=== PATIENT | female | born 1950 | race African-American/Black ===

== ENCOUNTER 2021-11-18 19:08 | Inpatient (IN) | payer MEDICARE, OTHER ==
[~2021-11-18] VITALS: Ht 157.5 cm; Wt 94.8 kg
[2021-11-18 21:28] LABS: BASOPHILS % 0.2 % (0.0-2.0); EOSINOPHILS % 1.9 % (0.0-5.0); HEMATOCRIT. 32.3 % (36.0-48.0); LYMPHOCYTES % 12.4 % (20.0-50.0); MEAN CORPUSCULAR HEMOGLOBIN 28.8 pg (28.0-32.0); MEAN CORPUSCULAR VOLUME 93.4 fL (81.0-99.0); MEAN PLATELET VOLUME 9.4 fl (7.4-10.4); MONOCYTES % 5.8 % (2.0-8.0); NEUTROPHILS % 79.7 % (40.0-76.0); PLATELET 299 x1000/uL (130-400); RED BLOOD CELL COUNT 3.46 mill/uL (4.2-5.4); RED CELL DISTRIBUTION WIDTH 17.9 % (11.6-14.6)
[2021-11-18 21:38] LABS: INR 1.5; PROTHROMBIN TIME 15.5 sec (9.6-11.0)
[2021-11-18 21:45] LABS: CHLORIDE 110 mEq/L (98-107)
[2021-11-18] MEDS ORDERED: PIPERACILLIN/TAZOBACTAM 3.375GM/50ML PREMIX IV ONE (21:45)
[2021-11-18 21:55] LABS: CREATINE KINASE 62 IU/L (26-192)
[2021-11-18] MEDS ORDERED: SODIUM CHLORIDE 0.9% 500 ML IV ONE (22:00)
[2021-11-18] MEDS ORDERED: PIPERACILLIN/TAZ 3.375G PREMIX 50 ML IV NR (22:00)
[2021-11-18] MEDS ORDERED: POLYETHYLENE GLYCOL 3350 (17GM) 1 DOSE PACK PO NR (22:30)
[2021-11-18] MEDS ORDERED: VANCOMYCIN 1G PREMIX 200 ML IV NR (22:30)
[2021-11-18 23:15] LABS: CLARITY URINE CLOUDY (CLEAR); COLOR URINE DARK YELLOW (YELLOW); KETONES URINE NEGATIVE (NEGATIVE); LEUKOCYTE ESTERASE URINE 2+ (NEGATIVE); NITRITE URINE NEGATIVE (NEGATIVE); OCCULT BLOOD URINE NEGATIVE (NEGATIVE); PH URINE 5.5 (4.5-8.0); PROTEIN URINE 1+ (NEGATIVE); SPECIFIC GRAVITY URINE 1.021 (1.005-1.030); UROBILINOGEN URINE 0.2 E.U./dL (0.2-1.0)
[2021-11-18] MEDS ORDERED: NA PHOS,M-B/NA PHOS,DI-BA ENEMA 118ML PR ONE (23:30)
[2021-11-18] MEDS ORDERED: BISACODYL 5MG TABLET PO NR (23:30)
[2021-11-19] VITALS (7 sets, daily range): BP systolic 121–188; BP diastolic 62–96
[2021-11-19] MEDS ORDERED: CLONIDINE 0.1MG TABLET PO PRN
[2021-11-19] MEDS ORDERED: CEFTRIAXONE 1 G PREMIX 50 ML IV SCH
[2021-11-19] MEDS ORDERED: HYDROCODONE/ACETAMINOPHEN 5/325MG TABLET PO PRN
[2021-11-19] MEDS ORDERED: NALOXONE HCL 0.4MG/ML VIAL IV PRN (09:00)
[2021-11-19] MEDS ORDERED: ENOXAPARIN 30MG/0.3ML SYR SUBCUT SCH (09:00)
[2021-11-19] MEDS ORDERED: FLUCONAZOLE 100MG TABLET PO SCH (09:00)
[2021-11-19 12:30] LABS: HEMATOCRIT. 26.2 % (36.0-48.0); HEMOGLOBIN. 8.2 g/dL (12.0-16.0); MEAN CORPUSCULAR HEMOGLOBIN 28.9 pg (28.0-32.0); MEAN CORPUSCULAR VOLUME 92.4 fL (81.0-99.0); MEAN PLATELET VOLUME 9.6 fl (7.4-10.4); PLATELET 229 x1000/uL (130-400); RED BLOOD CELL COUNT 2.84 mill/uL (4.2-5.4)
[2021-11-19 12:34] LABS: CHLORIDE 111 mEq/L (98-107)
[2021-11-19 12:44] LABS: PHOSPHORUS 2.3 mg/dL (2.5-4.9)
[2021-11-19] MEDS: ENOXAPARIN 100MG/ML SYR SUBCUT SCH ×2 (13:50→22:13)
[2021-11-19 15:23] LABS: PLATELET ESTIMATE NORMAL
[2021-11-19] MEDS: FLUCONAZOLE 400MG/200ML BAG 200 ML IV SCH (20:29)
[2021-11-19] MEDS: DEXT 5%/0.45% NACL 1000ML 1,000 ML IV SCH (20:29)
[2021-11-19] MEDS ORDERED: CEFTRIAXONE 1,000 MG in DEXTROSE 5% WATER 50 ML IV SCH (22:00)
[2021-11-19] MEDS: QUETIAPINE FUMARATE 25MG TABLET PO SCH (22:13)
[2021-11-20] VITALS (12 sets, daily range): BP systolic 129–157; BP diastolic 8–91
[2021-11-20] MEDS: DEXT 5%/0.45% NACL 1000ML 1,000 ML IV SCH ×2 (05:54→17:22)
[2021-11-20 06:47] LABS: BASOPHILS % 0.2 % (0.0-2.0); EOSINOPHILS % 1.8 % (0.0-5.0); HEMATOCRIT. 25.8 % (36.0-48.0); HEMOGLOBIN. 8.4 g/dL (12.0-16.0); LYMPHOCYTES % 8.7 % (20.0-50.0); MEAN CORPUSCULAR HEMOGLOBIN 29.2 pg (28.0-32.0); MEAN CORPUSCULAR VOLUME 89.4 fL (81.0-99.0); MEAN PLATELET VOLUME 9.5 fl (7.4-10.4); MONOCYTES % 5.9 % (2.0-8.0); NEUTROPHILS % 83.4 % (40.0-76.0); PLATELET 227 x1000/uL (130-400); RED BLOOD CELL COUNT 2.88 mill/uL (4.2-5.4); RED CELL DISTRIBUTION WIDTH 17.2 % (11.6-14.6)
[2021-11-20 07:04] LABS: CHLORIDE 113 mEq/L (98-107)
[2021-11-20 07:11] LABS: PHOSPHORUS 2.7 mg/dL (2.5-4.9)
[2021-11-20] MEDS ORDERED: POTASSIUM CHLORIDE INJ 40 MEQ in DEXT 5% WATER 500 ML IV NR (08:00)
[2021-11-20] MEDS ORDERED: POTASSIUM CHLORIDE 20MEQ TABLET SR PO NR (08:00)
[2021-11-20] MEDS: ENOXAPARIN 100MG/ML SYR SUBCUT SCH ×2 (09:03→21:27)
[2021-11-20] MEDS: CEFTRIAXONE 1,000 MG in DEXTROSE 5% WATER 50 ML IV SCH ×2 (09:04→09:05)
[2021-11-20 12:17] LABS: BG BASE EXCESS -0.1 mmol/L (-2.0-2.0); BG CARBOXYHEMOGLOBIN 0.3 % (0.5-1.5); BG DEOXYHEMOGLOBIN 1.8 % (0.0-5.0); BG FRACTION INSPIRED OXYGEN 35; BG METHEMOGLOBIN 0.5 % (0.0-1.5); BG OXYGEN SATURATION 98.2 % (92.0-98.5); BG OXYHEMOGLOBIN 97.4 % (94.0-97.0); BG PCO2 31.3 mmHg (35.0-45.0); BG PH 7.484 (7.350-7.450); BG PO2 126.1 mmHg (75.0-100.0); BG SAMPLE SITE RIGHT RADIAL; BG VENT MODE COOL AEROSOL
[2021-11-20 13:23] LABS: INR 2.3; PROTHROMBIN TIME 23.5 sec (9.6-11.0)
[2021-11-20 13:31] LABS: TOTAL IRON BINDING CAPACITY 126 ug/dL (250-450)
[2021-11-20 13:45] LABS: FERRITIN 868 ng/mL (10-291)
[2021-11-20] MEDS ORDERED: EZ-HD SUSPENSION(BARIUM SULFATE 340GM) PO ONE (14:00)
[2021-11-20] MEDS ORDERED: BARIUM SULFATE 176 GM SUSP.RECON ONE (14:05)
[2021-11-20 15:11] LABS: VITAMIN B12 SERUM 1069 pg/mL (211-911)
[2021-11-20 15:26] LABS: FOLIC ACID (FOLATE) SERUM > 20.00 ng/mL (>5.38)
[2021-11-20 18:48] LABS: CHLORIDE 112 mEq/L (98-107)
[2021-11-20] MEDS ORDERED: POTASSIUM CHLORIDE INJ 40 MEQ in DEXT 5% WATER 500 ML IV ONE (21:00)
[2021-11-20] MEDS: QUETIAPINE FUMARATE 25MG TABLET PO SCH (21:27)
[2021-11-20] MEDS: FLUCONAZOLE 400MG/200ML BAG 200 ML IV SCH (21:28)
[2021-11-20] MEDS: KCL 20MEQ/100ML X 2 FOR TOTAL KCL 40MEQ/200ML IV SCH ×2 (21:28→23:23)
[2021-11-21] VITALS (12 sets, daily range): BP systolic 132–168; BP diastolic 74–92
[2021-11-21] MEDS: DEXT 5%/0.45% NACL 1000ML 1,000 ML IV SCH ×3 (01:45→21:25)
[2021-11-21 07:04] LABS: BASOPHILS % 0.3 % (0.0-2.0); HEMATOCRIT. 24.8 % (36.0-48.0); INR 2.4; LYMPHOCYTES % 11.5 % (20.0-50.0); MEAN CORPUSCULAR HEMOGLOBIN 29.3 pg (28.0-32.0); MEAN CORPUSCULAR VOLUME 90.4 fL (81.0-99.0); MEAN PLATELET VOLUME 9.5 fl (7.4-10.4); MONOCYTES % 6.8 % (2.0-8.0); NEUTROPHILS % 79.4 % (40.0-76.0); PLATELET 222 x1000/uL (130-400); RED BLOOD CELL COUNT 2.74 mill/uL (4.2-5.4); RED CELL DISTRIBUTION WIDTH 17.4 % (11.6-14.6)
[2021-11-21 08:32] LABS: CHLORIDE 111 mEq/L (98-107); PHOSPHORUS 1.9 mg/dL (2.5-4.9)
[2021-11-21] MEDS: CEFTRIAXONE 1,000 MG in DEXTROSE 5% WATER 50 ML IV SCH (10:27)
[2021-11-21] MEDS: ENOXAPARIN 100MG/ML SYR SUBCUT SCH (10:27)
[2021-11-21] MEDS ORDERED: POTASSIUM CHLORIDE 20MEQ/PACKET PO NR (10:30)
[2021-11-21] MEDS ORDERED: POTASSIUM PHOS,M-BASIC-D-BASIC 20 MMOL in DEXT 5% WATER 243.3333 ML IV NR (12:00)
[2021-11-21] MEDS: GUAIFENESIN 200MG/10ML SUGAR FREE UDC PO PRN ×2 (14:23→21:25)
[2021-11-21] MEDS: QUETIAPINE FUMARATE 25MG TABLET PO SCH (21:25)
[2021-11-21] MEDS: FLUCONAZOLE 400MG/200ML BAG 200 ML IV SCH (21:25)
[2021-11-22] VITALS (13 sets, daily range): BP systolic 127–161; BP diastolic 71–101
[2021-11-22 01:38] LABS: HEMATOCRIT 25.1 % (36.0-48.0); HEMOGLOBIN 8.2 g/dL (12.0-16.0)
[2021-11-22] MEDS: GUAIFENESIN 200MG/10ML SUGAR FREE UDC PO PRN ×4 (05:01→18:01)
[2021-11-22] MEDS: DEXT 5%/0.45% NACL 1000ML 1,000 ML IV SCH (08:35)
[2021-11-22] MEDS ORDERED: POTASSIUM CHLORIDE 20MEQ TABLET SR PO ONE (08:45)
[2021-11-22] MEDS: CEFTRIAXONE 1,000 MG in DEXTROSE 5% WATER 50 ML IV SCH (09:47)
[2021-11-22 10:03] LABS: INR 2.4; PROTHROMBIN TIME 24.1 sec (9.6-11.0)
[2021-11-22 10:11] LABS: BASOPHILS % 0.5 % (0.0-2.0); EOSINOPHILS % 1.2 % (0.0-5.0); HEMATOCRIT. 25.5 % (36.0-48.0); HEMOGLOBIN. 8.3 g/dL (12.0-16.0); LYMPHOCYTES % 11.2 % (20.0-50.0); MEAN CORPUSCULAR HEMOGLOBIN 29.1 pg (28.0-32.0); MEAN CORPUSCULAR VOLUME 89.6 fL (81.0-99.0); MEAN PLATELET VOLUME 9.2 fl (7.4-10.4); MONOCYTES % 6.6 % (2.0-8.0); NEUTROPHILS % 80.5 % (40.0-76.0); PLATELET 206 x1000/uL (130-400); RED BLOOD CELL COUNT 2.85 mill/uL (4.2-5.4); RED CELL DISTRIBUTION WIDTH 17.4 % (11.6-14.6)
[2021-11-22 10:32] LABS: CHLORIDE 108 mEq/L (98-107)
[2021-11-22 10:37] LABS: PHOSPHORUS 2.1 mg/dL (2.5-4.9)
[2021-11-22] MEDS ORDERED: POTASSIUM PHOS,M-BASIC-D-BASIC 20 MMOL in DEXT 5% WATER 243.3333 ML IV NR (12:00)
[2021-11-22] MEDS: DEXT 5% WATER + KCL 20MEQ/L 1,000 ML IV SCH (12:21)
[2021-11-22] MEDS: MEROPENEM 1,000 MG in SODIUM CHLORIDE 0.9% 100 ML IV SCH ×2 (12:21→18:01)
[2021-11-22] MEDS: ONDANSETRON HCL 4MG/2ML INJ IV PRN (20:17)
[2021-11-22] MEDS: QUETIAPINE FUMARATE 25MG TABLET PO SCH (20:18)
[2021-11-22] MEDS: IPRATROPIUM/ALBUTEROL 0.5-3(2.5)MG/3ML NEB NEB PRN (20:32)
[2021-11-23] VITALS (13 sets, daily range): BP systolic 130–153; BP diastolic 67–92
[2021-11-23] MEDS: MEROPENEM 1,000 MG in SODIUM CHLORIDE 0.9% 100 ML IV SCH ×3 (02:28→18:25)
[2021-11-23] MEDS: GUAIFENESIN 200MG/10ML SUGAR FREE UDC PO PRN ×2 (03:46→09:33)
[2021-11-23 07:10] LABS: BASOPHILS % 0.4 % (0.0-2.0); EOSINOPHILS % 1.8 % (0.0-5.0); HEMATOCRIT. 22.8 % (36.0-48.0); HEMOGLOBIN. 7.4 g/dL (12.0-16.0); LYMPHOCYTES % 12.1 % (20.0-50.0); MEAN CORPUSCULAR HEMOGLOBIN 28.9 pg (28.0-32.0); MEAN CORPUSCULAR VOLUME 88.4 fL (81.0-99.0); MEAN PLATELET VOLUME 8.7 fl (7.4-10.4); MONOCYTES % 6.4 % (2.0-8.0); NEUTROPHILS % 79.3 % (40.0-76.0); PLATELET 182 x1000/uL (130-400); RED BLOOD CELL COUNT 2.58 mill/uL (4.2-5.4); RED CELL DISTRIBUTION WIDTH 17.1 % (11.6-14.6)
[2021-11-23 07:12] LABS: INR 2.3; PROTHROMBIN TIME 23.4 sec (9.6-11.0)
[2021-11-23 08:26] LABS: CHLORIDE 105 mEq/L (98-107)
[2021-11-23 08:32] LABS: PHOSPHORUS 2.3 mg/dL (2.5-4.9)
[2021-11-23] MEDS: THIAMINE HCL 100MG TABLET PO SCH (09:32)
[2021-11-23] MEDS: MULTIVITAMINS,THER W-MINERALS TABLET PO SCH (09:32)
[2021-11-23] MEDS ORDERED: POTASSIUM PHOS,M-BASIC-D-BASIC 20 MMOL in DEXT 5% WATER 243.3333 ML IV NR (12:30)
[2021-11-23 16:22] LABS: BG CARBOXYHEMOGLOBIN 0.3 % (0.5-1.5); BG DEOXYHEMOGLOBIN 4.3 % (0.0-5.0); BG FRACTION INSPIRED OXYGEN 21; BG HCO3 ACT 20.8 mmol/L (22.0-26.0); BG METHEMOGLOBIN 0.1 % (0.0-1.5); BG OXYGEN SATURATION 95.7 % (92.0-98.5); BG OXYHEMOGLOBIN 95.3 % (94.0-97.0); BG PCO2 31.7 mmHg (35.0-45.0); BG PH 7.434 (7.350-7.450); BG SAMPLE SITE RIGHT BRACHIAL; BG TOTAL HEMOGLOBIN 8.6 g/dL (12.0-18.0); BG VENT MODE ROOM AIR
[2021-11-23 17:54] LABS: HEPATITIS B SURFACE ANTIGEN NEGATIVE
[2021-11-23] MEDS: QUETIAPINE FUMARATE 25MG TABLET PO SCH (20:34)
[2021-11-23] MEDS: DEXT 5% WATER + KCL 20MEQ/L 1,000 ML IV SCH (21:50)
[2021-11-23 23:21] LABS: HEMATOCRIT 29.8 % (36.0-48.0); HEMOGLOBIN 9.8 g/dL (12.0-16.0)
[2021-11-24] VITALS (10 sets, daily range): BP systolic 122–155; BP diastolic 53–97
[2021-11-24] MEDS: MEROPENEM 1,000 MG in SODIUM CHLORIDE 0.9% 100 ML IV SCH ×3 (01:50→18:38)
[2021-11-24 07:16] LABS: BASOPHILS % 0.5 % (0.0-2.0); EOSINOPHILS % 3.4 % (0.0-5.0); HEMATOCRIT. 27.2 % (36.0-48.0); MEAN CORPUSCULAR HEMOGLOBIN 29.8 pg (28.0-32.0); MEAN CORPUSCULAR VOLUME 90.2 fL (81.0-99.0); MEAN PLATELET VOLUME 9.2 fl (7.4-10.4); MONOCYTES % 5.6 % (2.0-8.0); NEUTROPHILS % 78.5 % (40.0-76.0); PLATELET 149 x1000/uL (130-400); RED BLOOD CELL COUNT 3.02 mill/uL (4.2-5.4)
[2021-11-24 07:20] LABS: CHLORIDE 105 mEq/L (98-107)
[2021-11-24 07:26] LABS: PHOSPHORUS 2.3 mg/dL (2.5-4.9)
[2021-11-24 07:32] LABS: INR 1.6; PROTHROMBIN TIME 16.1 sec (9.6-11.0)
[2021-11-24] MEDS: THIAMINE HCL 100MG TABLET PO SCH (09:17)
[2021-11-24] MEDS: MULTIVITAMINS,THER W-MINERALS TABLET PO SCH (09:17)
[2021-11-24] MEDS: MAGNESIUM/ALUMINUM HYDROXIDE/SIMETHICONE 30ML UDC PO PRN (09:26)
[2021-11-24] MEDS ORDERED: SODIUM PHOS,M-BASIC-D-BASIC 20 MM in DEXT 5% WATER 243.3333 ML IV SCH (10:00)
[2021-11-24] MEDS ORDERED: MECL-159 MT (10:29)
[2021-11-24] MEDS ORDERED: PANT40TA51 MT (10:29)
[2021-11-24] MEDS ORDERED: ATOR40TA70 MT (10:29)
[2021-11-24] MEDS ORDERED: ASPI-1497 MT (10:29)
[2021-11-24] MEDS ORDERED: FURO40TA5 MT (10:29)
[2021-11-24] MEDS: GUAIFENESIN 200MG/10ML SUGAR FREE UDC PO PRN (13:00)
[2021-11-24 15:22] LABS: BG BASE EXCESS 0.6 mmol/L (-2.0-2.0); BG CARBOXYHEMOGLOBIN 0.1 % (0.5-1.5); BG HCO3 ACT 23.9 mmol/L (22.0-26.0); BG METHEMOGLOBIN 0.3 % (0.0-1.5); BG OXYHEMOGLOBIN 95.6 % (94.0-97.0); BG PH 7.477 (7.350-7.450); BG PO2 81.2 mmHg (75.0-100.0); BG SAMPLE SITE RIGHT BRACHIAL; BG TOTAL HEMOGLOBIN 9.9 g/dL (12.0-18.0); BG VENT MODE ROOM AIR
[2021-11-24] MEDS: IPRATROPIUM/ALBUTEROL 0.5-3(2.5)MG/3ML NEB NEB PRN (15:30)
[2021-11-24] MEDS: QUETIAPINE FUMARATE 25MG TABLET PO SCH (20:23)
[2021-11-25] VITALS: BP 155/82
[2021-11-25] MEDS: MEROPENEM 1,000 MG in SODIUM CHLORIDE 0.9% 100 ML IV SCH ×3 (01:21→17:15)
[2021-11-25 04:00] VITALS: BP 137/80
[2021-11-25 07:13] LABS: BASOPHILS % 0.5 % (0.0-2.0); EOSINOPHILS % 4.1 % (0.0-5.0); HEMATOCRIT. 26.8 % (36.0-48.0); LYMPHOCYTES % 17.9 % (20.0-50.0); MEAN CORPUSCULAR HEMOGLOBIN 29.8 pg (28.0-32.0); MEAN CORPUSCULAR VOLUME 88.5 fL (81.0-99.0); MEAN PLATELET VOLUME 8.9 fl (7.4-10.4); NEUTROPHILS % 69.5 % (40.0-76.0); PLATELET 182 x1000/uL (130-400); RED BLOOD CELL COUNT 3.03 mill/uL (4.2-5.4); RED CELL DISTRIBUTION WIDTH 16.9 % (11.6-14.6)
[2021-11-25 07:16] LABS: CHLORIDE 104 mEq/L (98-107)
[2021-11-25 07:24] LABS: AMYLASE 98 IU/L (25-115)
[2021-11-25 07:38] LABS: INR 1.3; PROTHROMBIN TIME 13.4 sec (9.6-11.0)
[2021-11-25 08:00] VITALS: BP 125/75
[2021-11-25] MEDS: MULTIVITAMINS,THER W-MINERALS TABLET PO SCH (09:10)
[2021-11-25] MEDS: THIAMINE HCL 100MG TABLET PO SCH (09:10)
[2021-11-25] MEDS: ONDANSETRON HCL 4MG/2ML INJ IV PRN (09:49)
[2021-11-25 12:00] VITALS: BP 130/70
[2021-11-25 16:00] VITALS: BP 127/61
[2021-11-25 20:00] VITALS: BP 152/65
[2021-11-25] MEDS: QUETIAPINE FUMARATE 25MG TABLET PO SCH (21:12)
[2021-11-25] MEDS: ACETAMINOPHEN 325MG TABLET PO PRN (21:12)
[2021-11-26] VITALS: BP 135/79
[2021-11-26] MEDS: MEROPENEM 1,000 MG in SODIUM CHLORIDE 0.9% 100 ML IV SCH ×3 (01:55→18:14)
[2021-11-26 04:00] VITALS: BP 145/79
[2021-11-26 07:04] LABS: BASOPHILS % 0.5 % (0.0-2.0); EOSINOPHILS % 5.6 % (0.0-5.0); HEMATOCRIT. 25.8 % (36.0-48.0); HEMOGLOBIN. 8.6 g/dL (12.0-16.0); LYMPHOCYTES % 24.1 % (20.0-50.0); MEAN CORPUSCULAR HEMOGLOBIN 29.5 pg (28.0-32.0); MEAN CORPUSCULAR VOLUME 88.6 fL (81.0-99.0); MEAN PLATELET VOLUME 8.3 fl (7.4-10.4); MONOCYTES % 7.7 % (2.0-8.0); NEUTROPHILS % 62.1 % (40.0-76.0); PLATELET 174 x1000/uL (130-400); RED BLOOD CELL COUNT 2.91 mill/uL (4.2-5.4); RED CELL DISTRIBUTION WIDTH 16.7 % (11.6-14.6)
[2021-11-26 07:18] LABS: CHLORIDE 104 mEq/L (98-107)
[2021-11-26 08:00] VITALS: BP 149/68
[2021-11-26] MEDS: MULTIVITAMINS,THER W-MINERALS TABLET PO SCH (09:05)
[2021-11-26] MEDS: THIAMINE HCL 100MG TABLET PO SCH (09:05)
[2021-11-26] MEDS: ONDANSETRON HCL 4MG/2ML INJ IV PRN (10:11)
[2021-11-26 12:00] VITALS: BP 137/79
[2021-11-26] MEDS: ACETAMINOPHEN 325MG TABLET PO PRN ×2 (14:29→21:08)
[2021-11-26 16:00] VITALS: BP 138/69
[2021-11-26 20:00] VITALS: BP 118/64
[2021-11-26] MEDS: QUETIAPINE FUMARATE 25MG TABLET PO SCH (21:07)
[2021-11-27] VITALS: BP 126/54
[2021-11-27] MEDS: MEROPENEM 1,000 MG in SODIUM CHLORIDE 0.9% 100 ML IV SCH ×3 (02:00→17:14)
[2021-11-27 04:00] VITALS: BP 163/61
[2021-11-27 07:41] LABS: BASOPHILS % 0.5 % (0.0-2.0); EOSINOPHILS % 7.8 % (0.0-5.0); HEMATOCRIT. 27.6 % (36.0-48.0); HEMOGLOBIN. 9.1 g/dL (12.0-16.0); LYMPHOCYTES % 23.2 % (20.0-50.0); MEAN CORPUSCULAR HEMOGLOBIN 29.4 pg (28.0-32.0); MEAN CORPUSCULAR VOLUME 89.2 fL (81.0-99.0); MEAN PLATELET VOLUME 8.1 fl (7.4-10.4); MONOCYTES % 6.3 % (2.0-8.0); NEUTROPHILS % 62.2 % (40.0-76.0); PLATELET 197 x1000/uL (130-400); RED BLOOD CELL COUNT 3.09 mill/uL (4.2-5.4); RED CELL DISTRIBUTION WIDTH 17.2 % (11.6-14.6)
[2021-11-27 07:56] LABS: INR 1.2; PROTHROMBIN TIME 12.3 sec (9.6-11.0)
[2021-11-27 08:00] VITALS: BP 111/84
[2021-11-27 08:02] LABS: CHLORIDE 103 mEq/L (98-107)
[2021-11-27] MEDS: MULTIVITAMINS,THER W-MINERALS TABLET PO SCH (10:07)
[2021-11-27] MEDS: THIAMINE HCL 100MG TABLET PO SCH (10:07)
[2021-11-27] MEDS: ACETAMINOPHEN 325MG TABLET PO PRN ×2 (10:26→22:32)
[2021-11-27 12:00] VITALS: BP_SYST 120; BP_SYST 139; BP_DIAS 60
[2021-11-27] MEDS ORDERED: POLYETHYLENE GLYCOL 3350 (17GM) 1 DOSE PACK PO PRN (13:15)
[2021-11-27] MEDS ORDERED: LACTULOSE 20G/30ML UDC PO SCH (14:00)
[2021-11-27] MEDS ORDERED: LIDOCAINE HCL 1% 10 MG/ML 10ML VIAL ONE (14:10)
[2021-11-27] MEDS: ONDANSETRON HCL 4MG/2ML INJ IV PRN (15:23)
[2021-11-27] MEDS: DOCUSATE SODIUM 250MG CAPSULE PO SCH (15:23)
[2021-11-27] MEDS: GUAIFENESIN 600MG ER TABLET PO SCH ×2 (15:23→22:33)
[2021-11-27] MEDS: QUETIAPINE FUMARATE 25MG TABLET PO SCH ×2 (15:23→22:33)
[2021-11-27 16:00] VITALS: BP 139/60
[2021-11-27] MEDS: FUROSEMIDE 40MG TABLET PO SCH (17:14)
[2021-11-27 20:00] VITALS: BP 143/75
[2021-11-28 00:37] VITALS: BP 138/83
[2021-11-28 03:05] LABS: BASOPHILS % 0.5 % (0.0-2.0); EOSINOPHILS % 6.4 % (0.0-5.0); HEMATOCRIT. 25.6 % (36.0-48.0); HEMOGLOBIN. 8.5 g/dL (12.0-16.0); LYMPHOCYTES % 29.1 % (20.0-50.0); MEAN CORPUSCULAR VOLUME 87.5 fL (81.0-99.0); MEAN PLATELET VOLUME 8.1 fl (7.4-10.4); MONOCYTES % 6.6 % (2.0-8.0); NEUTROPHILS % 57.4 % (40.0-76.0); PLATELET 178 x1000/uL (130-400); RED BLOOD CELL COUNT 2.93 mill/uL (4.2-5.4); RED CELL DISTRIBUTION WIDTH 17.2 % (11.6-14.6)
[2021-11-28 03:14] LABS: CHLORIDE 105 mEq/L (98-107)
[2021-11-28 03:24] LABS: HDL CHOLESTEROL 39 mg/dL (40-59); LDL CHOLESTEROL 50 mg/dL (5-100)
[2021-11-28 04:00] VITALS: BP 115/62
[2021-11-28] MEDS: MEROPENEM 1,000 MG in SODIUM CHLORIDE 0.9% 100 ML IV SCH ×3 (06:28→17:25)
[2021-11-28 08:00] VITALS: BP 152/67
[2021-11-28] MEDS: MULTIVITAMINS,THER W-MINERALS TABLET PO SCH (10:17)
[2021-11-28] MEDS: POTASSIUM CHLORIDE 20MEQ/PACKET PO SCH (10:17)
[2021-11-28] MEDS: ASPIRIN 81MG TABLET PO SCH (10:17)
[2021-11-28] MEDS: GUAIFENESIN 600MG ER TABLET PO SCH ×2 (10:18→21:42)
[2021-11-28] MEDS: QUETIAPINE FUMARATE 25MG TABLET PO SCH ×2 (10:18→21:42)
[2021-11-28] MEDS: DOCUSATE SODIUM 250MG CAPSULE PO SCH (10:18)
[2021-11-28] MEDS: FUROSEMIDE 40MG TABLET PO SCH (10:18)
[2021-11-28] MEDS: THIAMINE HCL 100MG TABLET PO SCH (10:20)
[2021-11-28 12:00] VITALS: BP 132/79
[2021-11-28] MEDS ORDERED: BISACODYL 10MG SUPP PR NR (15:15)
[2021-11-28 16:00] VITALS: BP 132/78
[2021-11-28] MEDS: ONDANSETRON HCL 4MG/2ML INJ IV PRN (16:16)
[2021-11-28] MEDS ORDERED: POLYETHYLENE GLYCOL 3350 (17GM) 1 DOSE PACK PO PRN (17:30)
[2021-11-28 20:00] VITALS: BP 131/68
[2021-11-29] VITALS: BP 139/70
[2021-11-29] MEDS: GUAIFENESIN 200MG/10ML SUGAR FREE UDC PO PRN ×2 (03:00→14:04)
[2021-11-29] MEDS: HYDROXYZINE 25MG TABLET PO PRN ×2 (03:16→11:28)
[2021-11-29 04:00] VITALS: BP 145/81
[2021-11-29 06:35] LABS: CHLORIDE 102 mEq/L (98-107)
[2021-11-29 06:46] LABS: PHOSPHORUS 2.1 mg/dL (2.5-4.9)
[2021-11-29 07:14] LABS: BASOPHILS % 0.3 % (0.0-2.0); EOSINOPHILS % 3.5 % (0.0-5.0); HEMOGLOBIN. 8.6 g/dL (12.0-16.0); LYMPHOCYTES % 18.3 % (20.0-50.0); MEAN CORPUSCULAR HEMOGLOBIN 29.1 pg (28.0-32.0); MEAN PLATELET VOLUME 8.4 fl (7.4-10.4); NEUTROPHILS % 71.9 % (40.0-76.0); PLATELET 192 x1000/uL (130-400); RED BLOOD CELL COUNT 2.96 mill/uL (4.2-5.4); RED CELL DISTRIBUTION WIDTH 16.9 % (11.6-14.6)
[2021-11-29 08:00] VITALS: BP 137/78
[2021-11-29] MEDS ORDERED: POTASSIUM-SODIUM PHOSPHATE POWDER PACKET PO NR (08:15)
[2021-11-29] MEDS ORDERED: POTASSIUM PHOS,M-BASIC-D-BASIC 15 MMOL in DEXT 5% WATER 245 ML IV NR (09:30)
[2021-11-29] MEDS: POTASSIUM CHLORIDE 20MEQ/PACKET PO SCH (10:36)
[2021-11-29] MEDS: DOCUSATE SODIUM 250MG CAPSULE PO SCH (10:36)
[2021-11-29] MEDS: FUROSEMIDE 40MG TABLET PO SCH (10:36)
[2021-11-29] MEDS: GUAIFENESIN 600MG ER TABLET PO SCH ×2 (10:37→20:32)
[2021-11-29] MEDS: THIAMINE HCL 100MG TABLET PO SCH (10:37)
[2021-11-29] MEDS: ASPIRIN 81MG TABLET PO SCH (10:38)
[2021-11-29] MEDS: MULTIVITAMINS,THER W-MINERALS TABLET PO SCH (10:38)
[2021-11-29] MEDS: QUETIAPINE FUMARATE 25MG TABLET PO SCH ×2 (10:38→20:32)
[2021-11-29 12:00] VITALS: BP 124/95
[2021-11-29 16:00] VITALS: BP 139/73
[2021-11-29] MEDS: MAGNESIUM/ALUMINUM HYDROXIDE/SIMETHICONE 30ML UDC PO PRN (17:49)
[2021-11-29 20:00] VITALS: BP 131/56
[2021-11-30] MEDS: HYDROXYZINE 25MG TABLET PO PRN (00:02)
[2021-11-30 00:04] VITALS: BP 136/84
[2021-11-30 04:00] VITALS: BP_SYST 125; BP_SYST 130; BP_DIAS 87; BP_DIAS 88
[2021-11-30 07:17] LABS: BASOPHILS % 0.6 % (0.0-2.0); EOSINOPHILS % 3.6 % (0.0-5.0); HEMATOCRIT. 27.4 % (36.0-48.0); HEMOGLOBIN. 8.9 g/dL (12.0-16.0); LYMPHOCYTES % 22.4 % (20.0-50.0); MEAN CORPUSCULAR VOLUME 88.8 fL (81.0-99.0); MEAN PLATELET VOLUME 8.1 fl (7.4-10.4); MONOCYTES % 6.3 % (2.0-8.0); NEUTROPHILS % 67.1 % (40.0-76.0); PLATELET 180 x1000/uL (130-400); RED BLOOD CELL COUNT 3.08 mill/uL (4.2-5.4); RED CELL DISTRIBUTION WIDTH 17.3 % (11.6-14.6)
[2021-11-30 07:33] LABS: CHLORIDE 99 mEq/L (98-107)
[2021-11-30 08:00] VITALS: BP 156/64
[2021-11-30] MEDS: DOCUSATE SODIUM 250MG CAPSULE PO SCH (08:26)
[2021-11-30] MEDS: FUROSEMIDE 40MG TABLET PO SCH (08:26)
[2021-11-30] MEDS: POTASSIUM CHLORIDE 20MEQ/PACKET PO SCH (08:26)
[2021-11-30] MEDS: MULTIVITAMINS,THER W-MINERALS TABLET PO SCH (08:26)
[2021-11-30] MEDS: THIAMINE HCL 100MG TABLET PO SCH (08:26)
[2021-11-30] MEDS: GUAIFENESIN 600MG ER TABLET PO SCH ×2 (08:26→21:26)
[2021-11-30] MEDS: ASPIRIN 81MG TABLET PO SCH (08:26)
[2021-11-30] MEDS: QUETIAPINE FUMARATE 25MG TABLET PO SCH ×2 (08:26→21:28)
[2021-11-30 11:59] VITALS: BP 145/82
[2021-11-30 16:00] VITALS: BP 121/64
[2021-11-30 20:00] VITALS: BP 148/96
[2021-11-30] MEDS: ACETAMINOPHEN 325MG TABLET PO PRN (21:26)
[2021-12-01] VITALS (7 sets, daily range): BP systolic 123–156; BP diastolic 61–91
[2021-12-01 06:57] LABS: BASOPHILS % 0.5 % (0.0-2.0); EOSINOPHILS % 2.6 % (0.0-5.0); HEMATOCRIT. 26.4 % (36.0-48.0); HEMOGLOBIN. 8.8 g/dL (12.0-16.0); LYMPHOCYTES % 22.6 % (20.0-50.0); MEAN CORPUSCULAR HEMOGLOBIN 29.3 pg (28.0-32.0); MEAN CORPUSCULAR VOLUME 87.9 fL (81.0-99.0); MEAN PLATELET VOLUME 8.3 fl (7.4-10.4); MONOCYTES % 5.5 % (2.0-8.0); NEUTROPHILS % 68.8 % (40.0-76.0); PLATELET 186 x1000/uL (130-400)
[2021-12-01 07:08] LABS: INR 1.1; PROTHROMBIN TIME 11.9 sec (9.6-11.0)
[2021-12-01 07:47] LABS: CHLORIDE 99 mEq/L (98-107)
[2021-12-01] MEDS: GUAIFENESIN 600MG ER TABLET PO SCH ×2 (09:00→21:25)
[2021-12-01] MEDS: ASPIRIN 81MG TABLET PO SCH (09:00)
[2021-12-01] MEDS: POTASSIUM CHLORIDE 20MEQ/PACKET PO SCH (10:16)
[2021-12-01] MEDS: MULTIVITAMINS,THER W-MINERALS TABLET PO SCH (10:16)
[2021-12-01] MEDS: FUROSEMIDE 40MG TABLET PO SCH (10:17)
[2021-12-01] MEDS: QUETIAPINE FUMARATE 25MG TABLET PO SCH ×2 (10:18→21:25)
[2021-12-01] MEDS: DOCUSATE SODIUM 250MG CAPSULE PO SCH (10:19)
[2021-12-01] MEDS: SENNOSIDES/DOCUSATE SOD 8.6/50MG TABLET PO SCH ×2 (14:03→18:46)
[2021-12-01] MEDS: BISACODYL 10MG SUPP PR PRN (14:03)
[2021-12-01] MEDS: POLYETHYLENE GLYCOL 3350 (17GM) 1 DOSE PACK PO SCH (14:03)
[2021-12-01] MEDS ORDERED: MIDAZOLAM HCL 2 MG/2 ML VIAL ONE (14:41)
[2021-12-01] MEDS ORDERED: PROPOFOL 200MG/20ML VIAL IV ONE (14:41)
[2021-12-01] MEDS ORDERED: LIDOCAINE HCL 1% 20ML VIAL (Pyxis) INJ ONE (14:44)
[2021-12-02] VITALS (7 sets, daily range): BP systolic 123–152; BP diastolic 58–86
[2021-12-02] MEDS: MAGNESIUM/ALUMINUM HYDROXIDE/SIMETHICONE 30ML UDC PO PRN (05:29)
[2021-12-02 07:33] LABS: BASOPHILS % 0.2 % (0.0-2.0); EOSINOPHILS % 0.6 % (0.0-5.0); HEMATOCRIT. 25.7 % (36.0-48.0); HEMOGLOBIN. 8.5 g/dL (12.0-16.0); LYMPHOCYTES % 14.2 % (20.0-50.0); MEAN CORPUSCULAR HEMOGLOBIN 28.9 pg (28.0-32.0); MEAN CORPUSCULAR VOLUME 87.3 fL (81.0-99.0); MEAN PLATELET VOLUME 8.1 fl (7.4-10.4); MONOCYTES % 5.8 % (2.0-8.0); NEUTROPHILS % 79.2 % (40.0-76.0); PLATELET 209 x1000/uL (130-400); RED BLOOD CELL COUNT 2.94 mill/uL (4.2-5.4); RED CELL DISTRIBUTION WIDTH 17.3 % (11.6-14.6)
[2021-12-02 07:36] LABS: CHLORIDE 99 mEq/L (98-107)
[2021-12-02] MEDS: ASPIRIN 81MG TABLET PO SCH (08:15)
[2021-12-02] MEDS: QUETIAPINE FUMARATE 25MG TABLET PO SCH ×2 (08:15→20:21)
[2021-12-02] MEDS: FUROSEMIDE 40MG TABLET PO SCH (08:15)
[2021-12-02] MEDS: ACETAMINOPHEN 325MG TABLET PO PRN ×3 (08:15→20:23)
[2021-12-02] MEDS: SENNOSIDES/DOCUSATE SOD 8.6/50MG TABLET PO SCH ×2 (08:16→16:07)
[2021-12-02] MEDS: POLYETHYLENE GLYCOL 3350 (17GM) 1 DOSE PACK PO SCH (08:16)
[2021-12-02] MEDS: POTASSIUM CHLORIDE 20MEQ/PACKET PO SCH (08:16)
[2021-12-02] MEDS: MULTIVITAMINS,THER W-MINERALS TABLET PO SCH (08:16)
[2021-12-02] MEDS: GUAIFENESIN 600MG ER TABLET PO SCH ×2 (08:59→20:21)
[2021-12-02 10:22] LABS: BG BASE EXCESS 7.5 mmol/L (-2.0-2.0); BG CARBOXYHEMOGLOBIN 0.4 % (0.5-1.5); BG DEOXYHEMOGLOBIN 2.7 % (0.0-5.0); BG FRACTION INSPIRED OXYGEN 21; BG HCO3 ACT 30.5 mmol/L (22.0-26.0); BG METHEMOGLOBIN 0.1 % (0.0-1.5); BG OXYGEN SATURATION 97.3 % (92.0-98.5); BG OXYHEMOGLOBIN 96.8 % (94.0-97.0); BG PCO2 36.8 mmHg (35.0-45.0); BG PH 7.537 (7.350-7.450); BG PO2 92.6 mmHg (75.0-100.0); BG SAMPLE SITE RIGHT RADIAL; BG TOTAL HEMOGLOBIN 8.6 g/dL (12.0-18.0); BG VENT MODE ROOM AIR
[2021-12-02] MEDS ORDERED: METO-396 PO (16:45)
[2021-12-02] MEDS ORDERED: SACU1TAB7 PO (16:45)
[2021-12-02] MEDS ORDERED: DOCU-150 PO (16:46)
[2021-12-02] MEDS ORDERED: WARFARIN SODIUM 5MG TABLET PO SCH (18:00)
[2021-12-02] MEDS ORDERED: ATOR40TA70 MT (18:26)
[2021-12-02] MEDS ORDERED: WARF-53 PO (18:27)
[2021-12-02] MEDS ORDERED: QUET25TA PO ×2 (18:27)
[2021-12-02] MEDS ORDERED: BISA-186 RC (18:27)
[2021-12-02] MEDS ORDERED: WHEA152P PO (18:27)
[2021-12-02] MEDS ORDERED: FURO40TA5 PO (18:27)
[2021-12-02] MEDS ORDERED: SENN1TAB35 PO (18:27)
[2021-12-02] MEDS ORDERED: MOM PO ×3 (18:34→18:35)
[2021-12-02] MEDS ORDERED: WARFARIN SODIUM 5MG TABLET PO NR (20:00)
[2021-12-03] VITALS: BP 153/82
[2021-12-03 04:00] VITALS: BP 160/79
[2021-12-03] MEDS: POTASSIUM CHLORIDE 20MEQ/PACKET PO SCH (06:19)
[2021-12-03 06:26] LABS: BASOPHILS % 0.5 % (0.0-2.0); EOSINOPHILS % 0.8 % (0.0-5.0); HEMATOCRIT. 25.2 % (36.0-48.0); HEMOGLOBIN. 8.5 g/dL (12.0-16.0); LYMPHOCYTES % 13.7 % (20.0-50.0); MEAN CORPUSCULAR HEMOGLOBIN 29.1 pg (28.0-32.0); MEAN CORPUSCULAR VOLUME 86.7 fL (81.0-99.0); MEAN PLATELET VOLUME 8.4 fl (7.4-10.4); MONOCYTES % 4.7 % (2.0-8.0); NEUTROPHILS % 80.3 % (40.0-76.0); PLATELET 196 x1000/uL (130-400); RED BLOOD CELL COUNT 2.91 mill/uL (4.2-5.4); RED CELL DISTRIBUTION WIDTH 16.9 % (11.6-14.6)
[2021-12-03 06:35] LABS: CHLORIDE 96 mEq/L (98-107)
[2021-12-03 07:40] LABS: INR 1.2; PROTHROMBIN TIME 12.4 sec (9.6-11.0)
[2021-12-03 08:00] VITALS: BP 145/59
[2021-12-03] MEDS: MULTIVITAMINS,THER W-MINERALS TABLET PO SCH (08:48)
[2021-12-03] MEDS: ACETAMINOPHEN 325MG TABLET PO PRN (08:48)
[2021-12-03] MEDS: ASPIRIN 81MG TABLET PO SCH (08:49)
[2021-12-03] MEDS: SENNOSIDES/DOCUSATE SOD 8.6/50MG TABLET PO SCH ×2 (08:49→16:04)
[2021-12-03] MEDS: POLYETHYLENE GLYCOL 3350 (17GM) 1 DOSE PACK PO SCH (08:49)
[2021-12-03] MEDS: QUETIAPINE FUMARATE 25MG TABLET PO SCH (08:49)
[2021-12-03] MEDS: GUAIFENESIN 600MG ER TABLET PO SCH (08:49)
[2021-12-03] MEDS: FUROSEMIDE 40MG TABLET PO SCH (08:49)
[2021-12-03] MEDS: BISACODYL 10MG SUPP PR PRN (11:08)
[2021-12-03 12:00] VITALS: BP 131/76
[2021-12-03] MEDS ORDERED: LACTULOSE 20G/30ML UDC PO PRN (15:00)
[2021-12-03 16:00] VITALS: BP 117/72
[2021-12-03 16:55] VITALS: BP 117/72
[2021-12-03] MEDS ORDERED: WARFARIN SODIUM 5MG TABLET PO SCH (18:00)
== END 2021-12-03 19:50 | disposition home health service (06) | DRG 871 ==
LOC: ER 19:08 → 6WST 23:22 → SUPCPDRO 23:45 → ENRESERV 11-19 03:48 → 5EST 11-19 11:37 → 7EST 11-24 17:25
PROVIDERS: ADMIT Internal Medicine; ATTEND Internal Medicine
PROC: 4A00X4Z Measurement of Central Nervous Electrical Activity, External Approach (ICD-10-PCS; 2021-11-22)
PROC: 30243N1 Transfusion of Nonautologous Red Blood Cells into Central Vein, Percutaneous Approach (ICD-10-PCS; principal; 2021-11-23)
PROC: 05HY33Z Insertion of Infusion Device into Upper Vein, Percutaneous Approach (ICD-10-PCS; 2021-11-27)
PROC: B54NZZA Ultrasonography of Left Upper Extremity Veins, Guidance (ICD-10-PCS; 2021-11-27)
PROC: B54MZZA Ultrasonography of Right Upper Extremity Veins, Guidance (ICD-10-PCS; 2021-11-27)
PROC: 0DB78ZX Excision of Stomach, Pylorus, Via Natural or Artificial Opening Endoscopic, Diagnostic (ICD-10-PCS; 2021-12-01)
DX: A41.89 Other specified sepsis (principal); G92.8 Other toxic encephalopathy; U07.1 COVID-19; I21.A1 Myocardial infarction type 2; I50.33 Acute on chronic diastolic (congestive) heart failure; K85.90 Acute pancreatitis without necrosis or infection, unspecified; J96.90 Respiratory failure, unspecified, unspecified whether with hypoxia or hypercapnia; J18.9 Pneumonia, unspecified organism; N17.9 Acute kidney failure, unspecified; B37.49 Other urogenital candidiasis; D68.59 Other primary thrombophilia; E44.0 Moderate protein-calorie malnutrition; I13.0 Hypertensive heart and chronic kidney disease with heart failure and stage 1 through stage 4 chronic kidney disease, or unspecified chronic kidney disease; J96.11 Chronic respiratory failure with hypoxia; K56.49 Other impaction of intestine; N13.39 Other hydronephrosis; K63.3 Ulcer of intestine; I96 Gangrene, not elsewhere classified; B96.20 Unspecified Escherichia coli [E. coli] as the cause of diseases classified elsewhere; D64.9 Anemia, unspecified; E83.39 Other disorders of phosphorus metabolism; E87.6 Hypokalemia; G47.00 Insomnia, unspecified; I25.10 Atherosclerotic heart disease of native coronary artery without angina pectoris; I27.20 Pulmonary hypertension, unspecified; I44.7 Left bundle-branch block, unspecified; L89.150 Pressure ulcer of sacral region, unstageable; I48.91 Unspecified atrial fibrillation; J44.9 Chronic obstructive pulmonary disease, unspecified; K29.30 Chronic superficial gastritis without bleeding; E66.01 Morbid (severe) obesity due to excess calories; N18.9 Chronic kidney disease, unspecified; R16.0 Hepatomegaly, not elsewhere classified; N31.9 Neuromuscular dysfunction of bladder, unspecified; R90.82 White matter disease, unspecified; R77.8 Other specified abnormalities of plasma proteins; R79.89 Other specified abnormal findings of blood chemistry; T45.515A Adverse effect of anticoagulants, initial encounter; Y92.89 Other specified places as the place of occurrence of the external cause; Z78.9 Other specified health status; Z79.01 Long term (current) use of anticoagulants; Z79.82 Long term (current) use of aspirin; Z79.899 Other long term (current) drug therapy; Z90.49 Acquired absence of other specified parts of digestive tract; Z93.0 Tracheostomy status; Z95.0 Presence of cardiac pacemaker; Z95.3 Presence of xenogenic heart valve; Z98.84 Bariatric surgery status; Z88.8 Allergy status to other drugs, medicaments and biological substances; Z68.38 Body mass index [BMI] 38.0-38.9, adult
CPT/HCPCS: 36415; 36573; 36600; 71045; 74018; 74176; 74230; 76700; 80048; 80053; 80061; 80076; 81003; 82150; 82248; 82270; 82375; 82550; 82607; 82728; 82746; 82805; 83540; 83550; 83605; 83735; 83880; 84100; 84134; 84145; 84484; 85014; 85018; 85025; 85044; 86140; 86301; 86705; 86709; 86803; 86850; 86900; 86920; 87077; 87186; 87340; 87426; 88305; 92610; 92611; 93005; 93306; 93923; 94640; 94660; 97162; 97164; 97166; 97168; 97530; 99291; C1725; C1769; J0696; J1450; J1650; J2185; J2250; J2405; J2543; J2704; J3370; J3480; J3490; J7050; J7060; P9016